=== PATIENT | female | born 1980 | race Caucasian/White ===

== ENCOUNTER 2022-03-08 20:03 | Emergency (ER) | payer SELFPAY ==
[~2022-03-08] VITALS: Ht 160 cm; Wt 59.0 kg
[2022-03-08] MEDS ORDERED: BACITO TOP (22:54)
== END 2022-03-08 23:21 | disposition home or self-care (01) ==
LOC: ER 20:03
DX: T23.202A Burn of second degree of left hand, unspecified site, initial encounter (principal); T31.0 Burns involving less than 10% of body surface; Z23 Encounter for immunization; X10.2XXA Contact with fats and cooking oils, initial encounter; Z88.2 Allergy status to sulfonamides
CPT/HCPCS: 90714; A9270

== ENCOUNTER 2023-07-29 21:33 | Observation (INO) | payer OTHER ==
[~2023-07-29 21:33] MED LIST: BACITO TOP
[2023-07-29 21:50] VITALS: BP 92/60
[2023-07-29 23:15] LABS: BASOPHILS ABSOLUTE AUTO 0.02 K/mm3 (0.00-0.23); BASOPHILS PERCENT AUTO 0 % (0-2); EOSINOPHILS ABSOLUTE AUTO 0.02 K/mm3 (0.00-0.68); EOSINOPHILS PERCENT AUTO 0 % (0-6); Hematocrit 35.7 % (33.0-51.0); Hemoglobin 12.1 g/dL (11.5-16.0); IMMATURE GRAN ABSOLUTE AUTO 0.05 K/mm3 (0.00-0.10); IMMATURE GRAN PERCENT AUTO 1 % (0-1); LYMPHOCYTES ABSOLUTE AUTO 0.41 K/mm3 (0.84-5.20); LYMPHOCYTES PERCENT AUTO 5 % (21-46); MONOCYTES ABSOLUTE AUTO 0.24 K/mm3 (0.16-1.47); MONOCYTES PERCENT AUTO 3 % (4-13); Mean Corpuscular HGB 31.8 pg (26.0-34.0); Mean Corpuscular HGB Conc 33.9 g/dL (31.5-36.5); Mean Corpuscular Volume 94 fL (80-100); Mean Platelet Volume 10.4 fL (9.1-12.4); NEUTROPHILS ABSOLUTE AUTO 7.81 K/mm3 (1.96-9.15); NEUTROPHILS PERCENT AUTO 91 % (41-73); Platelet Count 221 K/mm3 (150-400); RDW Coefficient Variation 14.2 % (11.7-14.2); RDW Standard Deviation 48.5 fL (35.1-46.3); White Blood Cell Count 8.55 K/mm3 (4.00-11.30)
[2023-07-29 23:37] LABS: Albumin, Blood 2.5 g/dL (3.4-5.0); Albumin/Globulin Ratio 0.7 (0.8-1.8); Bilirubin, Total 0.5 mg/dL (0.1-1.0); Bun/Creatinine Ratio 15.8 (12.0-20.0); Calcium, Blood 8.2 mg/dL (8.5-10.1); Creatinine, Blood 0.57 mg/dL (0.40-1.00); Globulin, Blood 3.7 g/dL (2.2-4.0); Potassium, Blood 3.4 mmol/L (3.5-5.5); Total Protein, Blood 6.2 g/dL (6.4-8.2)
[2023-07-30 07:55] VITALS: BP 110/60
--- NOTE | 2023-07-30 08:29 | NUR ---
patient having minimal pain in lower abdomen only on occasion, feels much better this morning and not having any vomiting. patient saline locked after 3rd bag LR ordered per provider. pt was up to bathroom this morning and did not have any more bleeding. minimal ucs noted on monitor, baby appropraite for gestational age at 27 weeks. pt going to eat breakfast this morning and see how she does
[2023-07-30] MEDS ORDERED: PRENATAL TABLE1 EAC9 PO (08:59)
== END 2023-07-30 09:15 | disposition home or self-care (01) ==
LOC: OBS 21:33 → BC 21:41 → OBS 21:42 → BC 21:43
PROVIDERS: ADMIT Family Medicine
DX: O60.03 Preterm labor without delivery, third trimester (principal); Z88.2 Allergy status to sulfonamides; Z3A.28 28 weeks gestation of pregnancy; O44.43 Low lying placenta NOS or without hemorrhage, third trimester
CPT/HCPCS: 36415; 76815; 76817; 80053; 85025; 96360; G0378; J7120

== ENCOUNTER 2023-09-20 20:33 | Inpatient (IN) | payer OTHER ==
[~2023-09-20] VITALS: Ht 160 cm; Wt 73.1 kg
[2023-09-20] VITALS (10 sets, daily range): BP systolic 84–104; BP diastolic 43–66
[~2023-09-20 20:33] MED LIST changes: +PRENATAL TABLE1 EAC9 PO
[2023-09-20] MEDS ORDERED: Metoclopramide HCl 5MG / ML 2ML Vial IV ONE (21:05)
[2023-09-20] MEDS ORDERED: Lactated Ringer's 1,000 ML IV SCH ×2 (21:05→23:25)
[2023-09-20] MEDS ORDERED: Citric Acid/Sodium Citrate 30 ML BTL PO STA (21:05)
[2023-09-20] MEDS ORDERED: CeFAZolin Sodium 2,000 MG in NS 50 ML IV SCH (21:10)
[2023-09-20 21:18] LABS: BASOPHILS ABSOLUTE AUTO 0.04 K/mm3 (0.00-0.23); BASOPHILS PERCENT AUTO 1 % (0-2); EOSINOPHILS ABSOLUTE AUTO 0.11 K/mm3 (0.00-0.68); EOSINOPHILS PERCENT AUTO 1 % (0-6); Hematocrit 33.4 % (33.0-51.0); IMMATURE GRAN ABSOLUTE AUTO 0.03 K/mm3 (0.00-0.10); IMMATURE GRAN PERCENT AUTO 0 % (0-1); LYMPHOCYTES ABSOLUTE AUTO 1.23 K/mm3 (0.84-5.20); LYMPHOCYTES PERCENT AUTO 15 % (21-46); MONOCYTES ABSOLUTE AUTO 0.56 K/mm3 (0.16-1.47); MONOCYTES PERCENT AUTO 7 % (4-13); Mean Corpuscular HGB 28.7 pg (26.0-34.0); Mean Corpuscular HGB Conc 32.9 g/dL (31.5-36.5); Mean Corpuscular Volume 87 fL (80-100); Mean Platelet Volume 11.8 fL (9.1-12.4); NEUTROPHILS ABSOLUTE AUTO 6.12 K/mm3 (1.96-9.15); NEUTROPHILS PERCENT AUTO 76 % (41-73); Platelet Count 227 K/mm3 (150-400); RDW Coefficient Variation 13.6 % (11.7-14.2); Red Blood Cell Count 3.83 M/mm3 (3.80-5.20); White Blood Cell Count 8.09 K/mm3 (4.00-11.30)
[2023-09-20] MEDS ORDERED: FentaNYL Citrate 50 MCG/ML 2 ML Injection ONE (21:49)
[2023-09-20] MEDS ORDERED: EpiNEPhrine 1 MG/1 ML 1ML Vial ONE (21:50)
[2023-09-20] MEDS ORDERED: Lactated Ringer's 1,000 ML IV ONE (21:50)
[2023-09-20] MEDS ORDERED: Oxytocin 10 Unit / ML Vial ONE ×2 (22:30→22:42)
[2023-09-20] MEDS ORDERED: HYDROmorphone HCl/Pf 1MG SYR IV PRN ×2 (22:55)
[2023-09-20] MEDS ORDERED: Ondansetron HCl 2 MG / ML 2ML Vial IV PRN ×2 (22:55→23:15)
[2023-09-20] MEDS ORDERED: Albuterol 2.5 MG/3 ML VIAL INH PRN (22:55)
[2023-09-20] MEDS ORDERED: FentaNYL Citrate 50 MCG/ML 2 ML Injection IV PRN (22:55)
[2023-09-20 22:58] LABS: PCO2 Cord - Arterial 46.8 mmHg (40-50); PO2 Cord - Arterial 17.3 mmHg (16-20)
[2023-09-20] MEDS ORDERED: Ketorolac Tromethamine 15mg Vial IV PRN (23:00)
[2023-09-20 23:01] LABS: PCO2 Cord - Venous 42.6 mmHg (40-50); pH Umbilical Cord - Venous 7.36 (7.26-7.35)
[2023-09-20] MEDS ORDERED: Magnesium Hydroxide Conc 10 ML UDC PO PRN (23:15)
[2023-09-20] MEDS ORDERED: Methylergonovine Maleate 0.2 MG Tab PO PRN (23:15)
[2023-09-20] MEDS ORDERED: Acetaminophen 500 MG Tab PO PRN (23:20)
[2023-09-20] MEDS ORDERED: Simethicone 80 MG Chew PO PRN (23:20)
[2023-09-20] MEDS ORDERED: OxyCODONE 5 mg/Acetamin 325 mg TABLET PO PRN (23:20)
[2023-09-20] MEDS ORDERED: OxyCODONE HCL 5 MG TAB PO PRN (23:20)
[2023-09-20] MEDS ORDERED: Lanolin Cream TOP PRN (23:20)
[2023-09-20] MEDS ORDERED: Carboprost Tromethamine 250 MCG/ML 1ML Amp IM PRN (23:20)
[2023-09-20] MEDS ORDERED: DiphenhydrAMINE HCL 25 MG Cap PO PRN (23:25)
[2023-09-20] MEDS ORDERED: LR Oxytocin 20 Units 1,000 ML IV SCH (23:25)
--- NOTE | 2023-09-20 23:30 | NUR ---
PT IS PASSING FLATUS.
[2023-09-21] VITALS (9 sets, daily range): BP systolic 101–123; BP diastolic 53–69
[2023-09-21] MEDS ORDERED: Ketorolac Tromethamine 30mg Vial IV SCH
--- NOTE | 2023-09-21 01:00 | NUR ---
PT IS UP TO WC TO VISIT HER BABY IN THE NURSERY. PT REQUIRES MINIMAL ASSISTANCE AND DENIES PAIN AT THIS TIME.
--- NOTE | 2023-09-21 02:53 | NUR ---
PT RETURNS TO ROOM VIA AFTER VISITING HER BABY IN THE NURSERY. sHE TRANSFERS INDEPENDENTLY FROM TO BED. KATELYN CCARE IS DONE AND PAD CHANGED. PT WILL PUMP AND THEN GET SOME SLEEP.
[2023-09-21 06:45] LABS: BASOPHILS ABSOLUTE AUTO 0.03 K/mm3 (0.00-0.23); BASOPHILS PERCENT AUTO 0 % (0-2); EOSINOPHILS ABSOLUTE AUTO 0.04 K/mm3 (0.00-0.68); EOSINOPHILS PERCENT AUTO 0 % (0-6); Hematocrit 29.2 % (33.0-51.0); Hemoglobin 9.8 g/dL (11.5-16.0); IMMATURE GRAN ABSOLUTE AUTO 0.04 K/mm3 (0.00-0.10); IMMATURE GRAN PERCENT AUTO 0 % (0-1); LYMPHOCYTES ABSOLUTE AUTO 1.15 K/mm3 (0.84-5.20); LYMPHOCYTES PERCENT AUTO 11 % (21-46); MONOCYTES ABSOLUTE AUTO 0.71 K/mm3 (0.16-1.47); MONOCYTES PERCENT AUTO 7 % (4-13); Mean Corpuscular HGB 29.2 pg (26.0-34.0); Mean Corpuscular HGB Conc 33.6 g/dL (31.5-36.5); Mean Corpuscular Volume 87 fL (80-100); Mean Platelet Volume 11.3 fL (9.1-12.4); NEUTROPHILS ABSOLUTE AUTO 8.72 K/mm3 (1.96-9.15); NEUTROPHILS PERCENT AUTO 82 % (41-73); Platelet Count 181 K/mm3 (150-400); RDW Coefficient Variation 13.5 % (11.7-14.2); RDW Standard Deviation 42.4 fL (35.1-46.3); Red Blood Cell Count 3.36 M/mm3 (3.80-5.20); White Blood Cell Count 10.69 K/mm3 (4.00-11.30)
[2023-09-21] MEDS ORDERED: Docusate Sodium 100 MG Cap PO SCH (09:00)
[2023-09-21] MEDS ORDERED: Prenatal Vit/FE Fumarate/FA 1 Tab PO SCH (09:00)
--- NOTE | 2023-09-21 10:10 | NUR ---
09/21/23 1010 Maay [place] VERIFICATIONS: EDIT CHART.
[2023-09-21] MEDS ORDERED: Ibuprofen 400 MG Tab PO SCH (16:00)
[2023-09-21] MEDS ORDERED: Percocet 5-3251 EACH PO (17:45)
[2023-09-21] MEDS ORDERED: IBU800 M1 PO (17:45)
[2023-09-22 00:38] VITALS: BP 140/97
--- NOTE | 2023-09-22 00:42 | NUR ---
PT ATTEMPTING TO BREASTFEED AND IS PAINFUL AT TIME BP TAKEN. MEDICATED WITH TWO PERCOCET. WILL RECHECK IN 15 MINUTES
[2023-09-22 00:56] VITALS: BP 101/57
[2023-09-22 03:46] VITALS: BP 111/56
[2023-09-22 09:39] VITALS: BP 112/64
[2023-09-22 17:10] VITALS: BP 109/56
--- NOTE | 2023-09-22 17:23 | NUR ---
DISCHARGE DISCHARGE TO BOARDER STATUS. PT CARING FOR SELF AND BABY INDEPENDANTLY. NO QUESTIONS OR CONCERNS. VSS. AFEBRILE. LOCHIA SCANT. INCISION C/D/I. VERBALIZES UNDERSTANDING OF DC INSTRUCTIONS AND FOLLOW UP APPOINTMENTS. STABLE
== END 2023-09-22 17:20 | disposition home or self-care (01) | DRG 786 ==
LOC: BC 20:56
PROVIDERS: ADMIT Obstetrics & Gynecology
PROC: 4A033R1 Measurement of Arterial Saturation, Peripheral, Percutaneous Approach (ICD-10-PCS; 2023-09-20)
PROC: 10D00Z1 Extraction of Products of Conception, Low, Open Approach (ICD-10-PCS; principal; 2023-09-20 21:15)
DX: O42.013 Preterm premature rupture of membranes, onset of labor within 24 hours of rupture, third trimester (principal); O60.14X0 Preterm labor third trimester with preterm delivery third trimester, not applicable or unspecified; O44.03 Complete placenta previa NOS or without hemorrhage, third trimester; Z37.0 Single live birth; Z3A.35 35 weeks gestation of pregnancy
CPT/HCPCS: 36415; 59025; 82803; 85025; 86850; 86900; 86901; 86923; A9270; J0171; J1885; J2590; J2765; J3010; J7120